=== PATIENT | female | born 1975 | race Caucasian/White ===

== ENCOUNTER 2025-05-28 15:31 | Emergency (ER) | payer OTHER, SELFPAY ==
[2025-05-28] VITALS (18 sets, daily range): BP systolic 170; BP diastolic 85; PULSE 81–105; RESP 20; TEMP 36.9; O2SAT 96
[2025-05-28] MEDS: methylPREDNISolone SUCC 125 MG VIAL IVP (16:03)
[2025-05-28] MEDS: Famotidine 20 MG/2 ML VIAL IVP (16:03)
[2025-05-28] MEDS: Loratidine 10 MG TAB PO (16:04)
--- NOTE | 2025-05-28 16:14 | W.ED.GENAD ---
Discharge Plan Disposition Patient Disposition: Home Condition: Stable Discharge Details Clinical Impression: Allergic reaction Primary Care Provider: [facility] Provider: Juan Randall Home Meds and New Rx's Prescriptions: No Action levothyroxine [Levoxyl] 50 mcg tablet 50 mcg PO DAILY calcium 250 mg tablet 250 mg PO DAILY Discharge Instructions Instructions: Allergic Reaction ED Additional Instructions: You were seen for your allergic reaction, you took Benadryl prior to arrival we have provided you with famotidine and a histamine-2 mark as well as a loratadine and IV methylprednisolone. You can take another Benadryl before bed but you should be all clear. Stay hydrated, return to an emergency department for any return of lip or tongue swelling, wheezing, shortness of breath, vomiting Discharge Data Discharge Date/Time-TO BE ENTERED AT DEPARTURE: 05/28/25 17:30 HPI General Date/Time Provider Initiated Documentation: 05/28/25 15:46. 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 Quality described as tingling in throat, some hives that resolved with Benadryl, no radiation to shortness of breath, tongue/lip swelling, endorses nausea. Severity is described as moderate. Palliating factors include Benadryl, had EpiPen but didn't use it. Provoking factors include ate food she packed from home. Events leading up to the incident/Associated Symptoms: Patient is visiting from [place]. Patient not anticoagulated. Related Data Home Medications ?Medication ?Instructions ?Recorded ?Confirmed calcium 250 mg tablet 250 mg PO DAILY 05/28/25 05/28/25 levothyroxine 50 mcg tablet 50 mcg PO DAILY 05/28/25 05/28/25 (Levoxyl) Allergies Allergy/AdvReac Type Severity Reaction Status Date / Time sesame oil Allergy Severe Anaphylaxis Verified 05/28/25 15:38 canola oil Allergy Mild Unknown Verified 05/28/25 15:38 iodine Allergy Mild Unknown Verified 05/28/25 15:38 pork derived (porcine) Allergy Mild Unknown Verified 05/28/25 15:38 General Stated Complaint: Allergic ANNELISE: 3 Review of Systems All systems reviewed & are unremarkable except as noted in HPI and below Exam Narrative Exam Narrative: GENERAL APPEARANCE: Well-nourished, non-toxic, awake and alert, atraumatic, no acute distress. SKIN: Warm, pink, dry, intact, without rashes/lesions/ulcerations. HEAD: Normocephalic, atraumatic, normal hair distribution for gender/age. EYES: Normal conjunctiva, no exudates on lids/lashes. ENT: Nares patent, no circumoral cyanosis, no facial swelling, no submandibular swelling or lip/tongue swelling NECK: Supple, trachea midline, painless cervical ROM. LUNGS/CHEST: Lungs CTA bilaterally- no wheezing, non-labored respirations, normal A/P diameter, symmetrical expansion, no chest wall deformity HEART (CV/PV): Regular rate and rhythm without murmur, no peripheral edema, no JVD. ABDOMEN: Soft, non-distended, no guarding. MSK: Normal ROM, no swelling/deformity to bilateral UEs or LEs, moving all extremities without weakness, no cyanosis, spine midline without tenderness, normal curvature. NEURO: Mental Status AAOx4 - alert to person, place, time, events No facial droop, no forehead involvement. Motor: No focal weakness - strength 5/5 in bilateral UEs and LEs, proximal and distal, symmetric. Sensory: sensation intact to light touch globally. Gait normal: patient ambulated without ataxia into ED room. PSYCH: euthymic, cooperative, pleasant, appropriate speech Course Vital Signs Vital signs: Vital Signs Temperature 36.9 C 05/28/25 15:32 Pulse 105 H 05/28/25 15:32 Respiratory Rate 20 05/28/25 15:32 Blood Pressure 170/85 H 05/28/25 15:32 Pulse Oximetry 96 05/28/25 15:32 Temperature 36.9 C 05/28/25 15:32 Temperature Source Oral 05/28/25 15:32 Pulse 105 H 05/28/25 15:32 Respiratory Rate 20 05/28/25 15:32 Blood Pressure 170/85 H 05/28/25 15:32 Blood Pressure Position Sitting 05/28/25 15:32 Pulse Oximetry 96 05/28/25 15:32 Oxygen Delivery Method Room Air 05/28/25 15:32 Oxygen Flow Rate 0 05/28/25 15:32 Pain Level 0 05/28/25 15:32 Medical Decision Making This dictation utilizes [id number] dictation software and may contain unedited grammatical errors. 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 Quality described as tingling in throat, some hives that resolved with Benadryl, no radiation to shortness of breath, tongue/lip swelling, endorses nausea. Severity is described as moderate. Palliating factors include Benadryl, had EpiPen but didn't use it. Provoking factors include ate food she packed from home. Events leading up to the incident/Associated Symptoms: Patient is visiting from [place]. Patients' medical history: Sesame allergy. Family and social history: Noncontributory. Pertinent exam findings / vital signs include no hives by time of arrival, no lip or tongue swelling, no wheezing. Differential / pathologies of concern include allergic reaction. Diagnostic studies of: - None. Interventions of: - IVP famotidine, methylprednisolone, p.o. loratadine. 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 Findings not consistent with worsening anaphylaxis. Disposition of allergic reaction. Patient verbalized understanding of the plan and return to ED criteria and engaged in shared decision making. PFSH All Active Problems (Updated 05/28/25 @ 17:24 by ALEXANDRU Baig) Allergic reaction (Acute) Social History Smoking risk assessment performed?: No
== END 2025-05-28 17:30 | disposition home or self-care (01) ==
PROVIDERS: Emergency Provider Physician Assistant
DX: T78.40XA Allergy, unspecified, initial encounter (principal)
CPT/HCPCS: 96374; 96375; 99284; 99283; J2919